=== PATIENT | female | born 1970 | race Asian ===

== ENCOUNTER 2025-03-26 10:58 | Inpatient (IN) | payer OTHER, SELFPAY ==
[2025-03-26] MEDS ORDERED: diphenhydrAMINE 50 MG/ML VIAL ONE (11:33)
[2025-03-26] MEDS ORDERED: Prochlorperazine 10 MG/2 ML VIAL ONE (11:33)
[2025-03-26] MEDS ORDERED: Ketorolac Tromethamine 30 MG (1 mL) VIAL ONE (11:34)
[2025-03-26 12:06] LABS: #Basophils 0.04 10x3/uL (0.0-0.2); #Eosinophils Less than 0.03 10x3/uL (0.0-0.5); #Monocytes 0.57 10x3/uL (0.0-1.1); #Neutrophils 10.08 10x3/uL (1.5-8.4); %Basophils 0.3 % (0.0-2.0); %Eosinophils 0.0 % (0.0-6.0); %Lymphocytes 6.7 % (18.0-47.0); %Monocytes 4.9 % (0.0-10.0); %Neutrophils 87.6 % (40.0-75.0); Hematocrit 41.0 % (34.9-44.5); Hemoglobin 13.3 g/dL (12.0-15.5); Mean Corpuscular Hemoglobin 29.3 pg (27.0-33.0); Mean Corpuscular Volume 90.3 fL (81.6-98.3); Platelet Count 221 10x3/uL (150-450); Red Blood Cell (RBC) Count 4.54 10x6/uL (3.90-5.03); White Blood Cell (WBC) Count 11.52 10x3/uL (3.5-10.5)
[2025-03-26 12:09] LABS: Glucose, Urine (Dipstick) Normal (Negative); Leukocyte 25 (Negative); Protein, Urine (Dipstick) 30 mg/dl (Neg-Trace); Specific Gravity, Urine 1.025 (1.005-1.030)
[2025-03-26 12:19] LABS: Bacteria/HPF 1+ HPF (None Seen); CAUTI Indications for Culture Pelvic or flank pain; RBC/HPF Greater than 50 HPF (0-3); WBC/HPF 0-3 HPF (0-3)
[2025-03-26 12:20] LABS: Urine Culture Reflex No No
[2025-03-26 12:23] LABS: ALT (SGPT) 21 U/L (Less than 34); AST (SGOT) 29 U/L (11-34); Albumin 4.5 g/dL (3.1-4.5); Alkaline Phosphatase 86 U/L (40-110); Anion Gap 15 mmol/L (10-20); BUN (Urea Nitrogen) 25 mg/dL (9.8-20.1); Bilirubin, Total 0.4 mg/dL (0.3-1.2); Calc. Creatinine Clearance 0 mL/min (70-130); Calcium 9.9 mg/dL (7.8-10.44); Carbon Dioxide 24 mmol/L (22-29); Chloride 108 mmol/L (98-107); Globulin 3.9 g/dL (2.4-3.5); Glucose 126 mg/dL (70-105); Lipase 25 U/L (8-78); Potassium 4.2 mmol/L (3.5-5.1); Sodium 143 mmol/L (136-145)
[2025-03-26] MEDS ORDERED: Ondansetron PF 4 MG/2 ML Vial IVP PRN (13:15)
[2025-03-26] MEDS ORDERED: Communication Order-Pharmacy FS PRN (13:15)
[2025-03-26] MEDS ORDERED: Electrolyte Replacement Protocol 1 EACH FS SCH (13:15)
[2025-03-26] MEDS ORDERED: Acetaminophen 325 MG TAB PO PRN (13:15)
[2025-03-26] MEDS ORDERED: cefTRIAXone (ROCEPHIN) 1 GM VIAL ONE (13:25)
[2025-03-26] MEDS ORDERED: Dextrose 50% Abboject 50 ML SYRINGE SLOW IVP PRN (14:55)
[2025-03-26] MEDS ORDERED: Glucagon 1 MG/ML KIT IM PRN (14:55)
[2025-03-26 16:12] VITALS: BMI 25.4
[2025-03-26] MEDS: Ketorolac Tromethamine 30 MG (1 mL) VIAL IVP SCH (18:43)
[2025-03-26] MEDS: Famotidine 20 MG TAB PO SCH (20:48)
[2025-03-26] MEDS ORDERED: Melatonin 3 MG TAB PO PRN (21:00)
[2025-03-27 04:02] LABS: #Basophils 0.03 10x3/uL (0.0-0.2); #Eosinophils Less than 0.03 10x3/uL (0.0-0.5); #Monocytes 0.50 10x3/uL (0.0-1.1); #Neutrophils 5.43 10x3/uL (1.5-8.4); %Basophils 0.4 % (0.0-2.0); %Eosinophils 0.1 % (0.0-6.0); %Lymphocytes 21.2 % (18.0-47.0); %Monocytes 6.6 % (0.0-10.0); %Neutrophils 71.3 % (40.0-75.0); Hematocrit 33.3 % (34.9-44.5); Hemoglobin 10.8 g/dL (12.0-15.5); Mean Corpuscular Hemoglobin 29.6 pg (27.0-33.0); Mean Corpuscular Volume 91.2 fL (81.6-98.3); Platelet Count 175 10x3/uL (150-450); Red Blood Cell (RBC) Count 3.65 10x6/uL (3.90-5.03); White Blood Cell (WBC) Count 7.61 10x3/uL (3.5-10.5)
[2025-03-27 04:17] LABS: Anion Gap 12 mmol/L (10-20); BUN (Urea Nitrogen) 19 mg/dL (9.8-20.1); Calc. Creatinine Clearance 80 mL/min (70-130); Calcium 8.4 mg/dL (7.8-10.44); Carbon Dioxide 23 mmol/L (22-29); Chloride 113 mmol/L (98-107); Glucose 97 mg/dL (70-105); Potassium 3.6 mmol/L (3.5-5.1); Sodium 144 mmol/L (136-145)
[2025-03-27] MEDS ORDERED: PROPOFOL 20 ML ONE (08:17)
[2025-03-27] MEDS ORDERED: Ondansetron PF 4 MG/2 ML Vial ONE (08:25)
[2025-03-27] MEDS: Enoxaparin 40 MG (0.4 mL) SYRINGE SC SCH (10:39)
[2025-03-27] MEDS: cefTRIAXone\\ROCEPHIN 2 GM in Sodium Chloride 0.9% 100 ML IVPB SCH (13:56)
[2025-03-27 15:42] VITALS: BP 125/60; TEMP 98.4
== END 2025-03-27 15:55 | disposition home or self-care (01) | DRG 660 ==
LOC: CSHERS 10:58 → CSHTELE 13:53
PROVIDERS: ADMIT Family Medicine; ATTEND Family Medicine
PROC: 0TC68ZZ Extirpation of Matter from Right Ureter, Via Natural or Artificial Opening Endoscopic (ICD-10-PCS; principal; 2025-03-26)
PROC: 0T768DZ Dilation of Right Ureter with Intraluminal Device, Via Natural or Artificial Opening Endoscopic (ICD-10-PCS; 2025-03-26)
PROC: 3E03329 Introduction of Other Anti-infective into Peripheral Vein, Percutaneous Approach (ICD-10-PCS; 2025-03-26)
DX: N13.6 Pyonephrosis (principal); E87.20 Acidosis, unspecified; N10 Acute pyelonephritis; R73.9 Hyperglycemia, unspecified; Z90.722 Acquired absence of ovaries, bilateral; Z59.86 Financial insecurity
CPT/HCPCS: 36415; 36416; 74176; 80048; 80053; 81001; 82365; 83605; 83690; 85025; 87040; 87086; 88300; 96374; 96375; C2617; J0696; J0780; J1100; J1200; J1885; J2704; J3010; J7030

== ENCOUNTER 2025-06-01 12:24 | Outpatient (CLI) | payer OTHER | END 2025-06-01 12:25 | disposition home or self-care (01) | LOC: CSHMAMMO 12:24 | PROVIDERS: ATTEND Nurse Practitioner Family | DX: Z12.31 Encounter for screening mammogram for malignant neoplasm of breast (principal); R92.333 Mammographic heterogeneous density, bilateral breasts | CPT/HCPCS: 77063; 77067 ==